=== PATIENT | female | born 1940 ===

== ENCOUNTER 2025-01-30 14:53 | Outpatient (CLI) | payer MEDICARE, SELFPAY ==
--- NOTE | ~2025-01-30 | MR_ITS ---
MRI of the lumbar spine Clinical History: Spinal stenosis Technique: Axial T2-weighted images, and sagittal T1-weighted, T2-weighted, and T2 fat-sat images wer e acquired. Findings: There is acute mild compression fracture deformity superiorly region of L1, with marrow negar ma and hypointense fracture line, with minimal loss of height. Mild chronic compression fracture defo rmity of L3 present, without marrow edema. There is 4 mm anterolisthesis of L2 over L3. There is 5 mm anterolisthesis of L3 over L4. At L1-L2, there is mild to moderate degenerative distended. There is minimal disc bulge with moderate facet arthropathy. No central canal stenosis. There is advanced right neural foraminal narrowing, an d moderate left neural foraminal narrowing. At L2-L3, there is diffuse disc bulge and severe facet arthropathy, resulting in severe spinal canal stenosis/thecal sac compression. There is severe right neural foraminal narrowing. There is mild to m oderate left neural foraminal narrowing. At L3-L4, there is moderate degenerative distended. There is disc bulge with severe facet arthropathy with fusion across the facet joints. No parth spinal canal stenosis. There is minimal bilateral neur al foraminal narrowing. At L4-L5, there is minimal disc bulge. There is severe facet arthropathy. No central canal stenosis o r neural foraminal narrowing. At L5-S1, there is advanced degenerative disc narrowing. There is advanced facet arthropathy with dis c osteophyte complex present. No central canal stenosis. There is moderate to advanced left neural fo raminal narrowing. Right neural foramen preserved. Paravertebral soft tissues are unremarkable aside from postoperative changes posteriorly. Impression: Acute minimal compression fracture deformity of L1. Chronic compression fracture of L3. 5 mm anterolisthesis of L3 over L4. 4 mm anterolisthesis of L2 over L3. Severe degenerative spondylosis at L2-L3, as detailed above. Moderate degenerative spondylosis at L1- L2 and L5-S1. Reviewed, dictated and finalized at location . Impression: Acute minimal compression fracture deformity of L1. Chronic compression fracture of L3. 5 mm anterolisthesis of L3 over L4. 4 mm anterolisthesis of L2 over L3. Severe degenerative spondylosis at L2-L3, as detailed above. Moderate degenerat carleen spondylosis at L1-L2 and L5-S1.
== END 2025-01-30 14:54 | disposition home or self-care (01) ==
PROVIDERS: PCP Internal Medicine; Visit Provider Internal Medicine
DX: M48.062 Spinal stenosis, lumbar region with neurogenic claudication (principal); S32.010A Wedge compression fracture of first lumbar vertebra, initial encounter for closed fracture; S32.030A Wedge compression fracture of third lumbar vertebra, initial encounter for closed fracture; S32.040A Wedge compression fracture of fourth lumbar vertebra, initial encounter for closed fracture; M47.896 Other spondylosis, lumbar region; M47.897 Other spondylosis, lumbosacral region; X58.XXXA Exposure to other specified factors, initial encounter
CPT/HCPCS: 72148